=== PATIENT | male | born 1960 | race Caucasian/White ===

== ENCOUNTER 2018-01-04 08:29 | Day surgery (SDC) | payer OTHER ==
[2018-01-04] MEDS ORDERED: MIDAZOLAM 1 MG/ML 2 ML INJ ×3 (10:09)
[2018-01-04] MEDS ORDERED: FENTAnyl 50 MCG/ML VIAL (10:09)
== END 2018-01-04 17:35 | disposition home or self-care (01) ==
LOC: GIL 08:29
DX: Z12.11 Encounter for screening for malignant neoplasm of colon (principal); K64.8 Other hemorrhoids; K57.90 Diverticulosis of intestine, part unspecified, without perforation or abscess without bleeding
CPT/HCPCS: 45378